=== PATIENT | female | born 1970 | race Caucasian/White ===

== ENCOUNTER 2018-08-15 09:37 | Emergency (ER) | payer OTHER, SELFPAY ==
[2018-08-15 09:38] VITALS: BP 138/85; PULSE 74; RESP 18; TEMP 36.6; O2SAT 98; BMI 38.0
--- NOTE | 2018-08-15 09:49 | EKG12_ITS ---
Test Reason : CHEST OTHER Blood Pressure : / mmHG Vent. Rate : 071 BPM Atrial Rate : 071 BPM P-R Int : 190 ms QRS Dur : 090 ms QT Int : 408 ms P-R-T Axes : 026 018 000 degrees QTc Int : 443 ms Normal sinus rhythm Normal ECG Confirmed by ÁNGEL MCNALLY, WALTER ([id number]), editor & co founder SORIN MACKEY ([id number]) on 08/19/2018 2:29:37 PM Referred By: MAGGI Confirmed By:WALTER NEAL MD
--- NOTE | 2018-08-15 09:49 | CT_ITS ---
STUDY: CTA CHEST REASON FOR EXAM: Female, 48 years old. Right-sided anterior chest pain with deep breathing. RADIATION DOSAGE (If Supplied By Facility): CTDIvol = ( 20.04 ) mGy, DLP = ( 711.89 ) mGycm TECHNIQUE: The examination was performed with the intravenous administration of 100mL ml of Isovue 370 contrast material. Post-processing of the angiographic images was performed, with multiplanar reformation and 3D reconstruction. Individualized dose optimization techniques were used for this CT. COMPARISON: None. FINDINGS: There are small bilateral benign-appearing axillary lymph nodes. There is evidence of an intraluminal thrombus in the right upper lobe pulmonary arterial branch as seen on axial image #150 and coronal image #142. Normal thoracic aorta and visualized great vessels. There is no demonstrated aortic dissection. Normal heart and pericardium. Normal mediastinum. Normal hilar regions. Normal visualized trachea and bronchi. The lungs are well expanded. Mild increase in linear markings at the lung bases suggestive of atelectasis. Normal pleura. Normal chest wall structures. Normal osseous structures. Normal visualized upper abdomen. CT/CTA Chest W/WO Contrast IMPRESSION: Focal pulmonary embolism in a branch of the right upper lobe pulmonary artery. Electronically Signed: Jose Zabala MD at 11:00 EST Tel [phone], Service support ,
--- NOTE | 2018-08-15 09:57 | ED.DCSUM_ITS ---
- ER Visit Summary Date of Service: 08/15/18 Chief Complaint: Right-sided chest pain History of Present Illness: The patient is a 48 F presents to the emergency department with gradual onset severe right-sided chest pain. Patient states her symptoms began last night. She states she had a pain underneath her left breast. She states throughout the night, the pain seemed to get worse. She feels like she cannot take a deep breath because of the pain. She denies any fevers or chills. She denies any cough. Patient has no history of pulmonary embolus. She denies any recent travel. She is currently on spinal lactone and doxycycline. She states that she will take antibiotics as needed for her histo ry of hidradenitis. She states that she has had some increasing pain in her right axilla. She denies history of smoking. She has no history of hypercoagulability. She has no history of coronary vascular disease. Physical Examination: Vital signs reviewed General: Well-nourished, well-developed Head: Normocephalic, atraumatic Eyes: Pupils equal and reactive, extraocular muscles intact Neck, supple, no lymphadenopathy Heart: Regular rate and rhythm Respiratory: No distress, clear bilaterally, tenderness over the right lower lateral chest underneath the breast. Abdomen: Soft, nontender, nondistended, no peritoneal signs Back: Nontender Extremities: Nontender, no edema, no cords Skin: Normal color no rash Neuro: Alert and oriented, no focal or lateralizing deficits Test Results: [] Emergency Department Course and Treatment: The patient presents with rather significant right-sided chest pain worse when she takes a deep breath. She is not tachycardic. She is not hypotensive. She is not hypoxic. IV was established. She was treated with Toradol with improvement of the pain. Her labs relatively unremarkable. Her EKG shows no evidence of right ventricular strain. Patient underwent CTA of the chest. She does have a right upper lobe pulmonary embolus. There is no evidence of lung infarct or pneumonia. I did discuss options with the patient. She wants to attempt outpatient therapy. I feel this is reasonable. She has no significant comorbidities, she is not hypoxic, and her pain is controlled. I did discuss the patient with Dr. Hawley, on-call for Dr. Carr. He agrees with plan for Xarelto use. Patient is given her first dose here. She was counseled on concerning symptoms and reasons to return. She will be discharged home. Treatment Plan: [] Disposition: To Impression: Right upper lobe pulmonary embolus This note was generated with [employer] dictation software. It may contain incorrect words, spelling, and punctuation that were not noted in review of the chart prior to signing ED Disposition - Plan for ED Patient: Disposition: Home or Assisted Living Chief Complaint: Chest Other Instructions: ED DVT, ED Chest Pain Pleurisy Prescriptions: Hydrocodone Bitart/Apap 5-325 [Circle 5MG-325MG] 1 tab PO Q6H PRN PRN 3 Days #10 tab PRN Reason: Pain Rivaroxaban [Xarelto] 15 mg PO BID #42 tab Referrals: Marcos Carr DO [Primary Care Provider] - 1 Day
[2018-08-15 10:07] LABS: Absolute Lymphocyte Count 1.53 X10^3/ul (0.83-4.51); Absolute Neutrophil Count 6.1 X10^3/uL (2.0-7.7); Basophil# 0.02 X10^3/uL; Basophil% 0.2 % (0-1); Eosinophil# 0.12 X10^3/uL; Eosinophils% 1.4 % (0-5); Hematocrit 40.3 % (37-47); Hemoglobin 13.3 g/dl (12.0-15.0); Lymphocyte # 1.53 X10^3/ul (4.0); Mean Corpuscular Hgb 29.6 pg (27.0-32.0); Mean Corpuscular Volume 89.8 fL (81-99); Mean Platelet Vol. 9.9 fl (6.2-12.0); Monocyte# 0.76 X10^3/uL; Monocyte% 8.9 % (0-10); Neutrophil # 6.08 X10^3/uL (2.7-7.7); Neutrophil % 71.4 % (47-70); POSITIVE COUNT NO; POSITIVE DIFFERENTIAL NO; POSITIVE MORPHOLOGY NO; Platelet Count 309 K/mm3 (150-450); RBC Distribution Width CV 12.7 % (11.6-14.6); RBC Distribution Width SD 41.4 fl (35.1-43.9); Red Blood Count 4.49 M/mm3 (4.2-5.4); White Blood Count 8.5 K/mm3 (4.4-11.0)
[2018-08-15] MEDS: Ondansetron 4 MG/2 ML Vial IV (10:07)
[2018-08-15] MEDS: 0.9% Normal Saline 1,000 ML 1000 ML IV (10:07)
[2018-08-15] MEDS: Ketorolac 15 MG/ML Vial IV (10:07)
[2018-08-15 10:14] LABS: Partial Thromboplast Time 28.1 Seconds (24.1-36.2)
[2018-08-15 10:28] LABS: ALB/GLOB Ratio 0.8 RATIO (0.9-2.4); AST(SGOT) 16 U/L (15-37); Alanine Aminotransfer ALT/SGPT 19 U/L (13-56); Albumin, Serum 3.8 g/dL (3.2-5.0); Alkaline Phosphatase 53 U/L (45-117); Anion Gap 6 (5-15); BUN 17 mg/dL (7-18); BUN/Creat Ratio 16.8 RATIO (10-20); Calcium,Total 8.9 mg/dL (8.5-10.1); Chloride 103 mmol/L (98-107); Creatinine, Serum 1.01 mg/dL (0.55-1.02); EST Glomerular Filtration Rate 62 mL/min (>60); Est Glom Filt Rate - Afr Amer 75 mL/min (>60); Globulin 4.6 g/dL (2.2-4.2); Glucose 85 mg/dL (74-106); Lipase 222 U/L (73-393); Potassium 4.3 mmol/L (3.5-5.1); Protein, Total 8.4 g/dL (6.4-8.2); Sodium Level 138 mmol/L (136-145)
[2018-08-15 12:52] VITALS: BP 112/72; PULSE 66; PULSE 70; RESP 18
[2018-08-15] MEDS: Rivaroxaban 15 MG Tablet PO (12:54)
== END 2018-08-15 13:11 | disposition home or self-care (01) ==
LOC: ED 10:06
PROVIDERS: Emergency Provider Emergency Medicine; Family Provider Student in an Organized Health Care Education/Training Program; PCP Student in an Organized Health Care Education/Training Program
DX: I26.99 Other pulmonary embolism without acute cor pulmonale (principal)
CPT/HCPCS: 71275; 80053; 83690; 84484; 85025; 85610; 85730; 93005; 96361; 96374; 96375; 99285; J7030; Q9967; A4216; J2405

== ENCOUNTER 2018-12-26 11:03 | Day surgery (SDC) | payer OTHER, SELFPAY ==
[2018-12-05 13:20] VITALS: BMI 38.0
--- NOTE | 2018-12-05 13:20 | HP_ITS ---
Intake Vital Signs 12/05/18 Body Mass Index (BMI) 38.0 12/05/18 Height 5 ft 6.5 in 12/05/18 Weight: 245 lb 1 oz 12/05/18 Body Mass Index (BMI) 38.9 12/05/18 Blood Pressure 126/81 H 12/05/18 Blood Pressure Location Rt brachial 12/05/18 Blood Pressure Position Sitting 12/05/18 Respiratory Rate 18 12/05/18 Pulse Rate 75 12/05/18 Pulse Ox 98 Intake Visit Reasons: EGD & COLONOSCOPY Allergies Penicillins Allergy (Verified 12/05/18 13:15) Rash erythromycin base Adverse Reaction (Verified 12/05/18 13:15) Diarrhea Medications Desloratadine [Clarinex] 5 mg PO PRN PRN 08/15/18 [History Confirmed 12/05/18] Doxycycline 100 mg PO DAILY 08/15/18 [History Confirmed 12/05/18] Losartan Potassium [Cozaar] 25 mg PO DAILY 08/15/18 [History Confirmed 12/05/18] Rivaroxaban [Xarelto] 15 mg PO BID #42 tab 08/15/18 [Rx Confirmed 12/05/18] Spironolactone [Aldactone] 100 mg PO BID 08/15/18 [History Confirmed 12/05/18] traMADol [Ultram (G)] 50 mg PO PRN PRN 08/15/18 [History Confirmed 12/05/18] PFSH Medical History Back pain (Acute) Hidradenitis (Acute) Osteoarthritis (Acute) Pulmonary embolism (Acute) HTN (hypertension) (Chronic) Surgical History History of colonoscopy (Acute ~2008) History of colonoscopy (Acute ~2013) History of dilation and curettage (Acute) History of esophagogastroduodenoscopy (EGD) (Acute ~2001) Family History Father Colon cancer CVA (cerebral vascular accident) Heart disease Uncle Cancer stomach Social History Smoking Status: Never smoker ROS General General: No weight change, appetite, fatigue, colon cancer, breast cancer or weakness HEENT HEENT: No difficulty swallowing, eye injury, eye surgery, swollen glands or hoarseness Musc Musculoskeletal: Yes back problems and arthritis; no rheumatoid arthritis, gout or joint pain Cardio Cardiovascular: Yes high blood pressure; no murmur, pacemaker, heart disease, atrial fibrillation, heart attack, heart stent, palpitations, shortness of breat with exertion or chest pain Resp Respiratory: No shortness of breath, No sleep apnea, No cough, No COPD, No asthma, No emphysema, No wheezing Gastro Gastrointestinal: No abdominal pain, No nausea or vomiting, Yes diarrhea, No constipation, No blood in stool, No acid reflux, No hemorrhoids, No ulcers, No gallbladder problem, No black,tarry stools Neuro Neurologic: No weakness Exam Const General: no acute distress, well developed, well hydrated Orientation: oriented to person, oriented to place, oriented to time [facility] Head: normocephalic, atraumatic Ears: external ears normal Mouth: moist mucous membranes Eyes Sclera: sclerae normal Pupils: normal by confrontation Neck Neck: no lymphadenopathy noted Neck mass: No Thyroid: thyroid normal, symmetrical Chest Chest palpation & inspection: normal inspection of the chest Resp Effort & Inspection: normal respiratory effort Auscultation: clear to auscultation bilaterally Percussion: percussion normal Cardio Rate: regular rate Rhythm: regular rhythm Heart Sounds: no murmurs GI Inspection: obesity Palpation: soft, no hepatosplenomegaly, no masses, nontender Rectal Exam: other Other: Rectal exam deferred. Extrem General: normal to inspection, no clubbing, cyanosis or edema Assessment & Plan Problems 1. Acute pulmonary embolism without acute cor pulmonale, unspecified pulmonary embolism type I26.99 2. Epigastric abdominal pain R10.13 3. Family history of stomach cancer Z80.0 4. Family history of colon cancer Z80.0 Plan I have discussed the above with the patient. I have offered the patient colonoscopy as well as EGD for evaluation. I have explained the risks/benefits of the procedure and described the procedure. I have discussed the risks with the patient, including but not limited to: infection, bleeding, perforation of the GI tract requiring emergency surgery, inability to complete the procedure, injury to any internal organs, complications of anesthesia, etc. - the patient understands and agrees to proceed. I have answered all the patient's questions to the patient's satisfaction and the patient has no further questions. The patient has been given instructions for the colon cleansing preparation. Coding Level of Care Code Off vis,new,level 3 Diagnoses Acute pulmonary embolism without acute cor pulmonale, unspecified pulmonary embolism type I26.99 ??Pulmonary embolism type: unspecified Epigastric abdominal pain R10.13 Family history of stomach cancer Z80.0 Family history of colon cancer Z80.0
[2018-12-26] VITALS (7 sets, daily range): BP systolic 121–131; BP diastolic 82–88; PULSE 79–98; RESP 16–18; TEMP 36.8–37; O2SAT 97–100; BMI 37.2
--- NOTE | 2018-12-26 | GASB_PTH ---
PATIENT: NOBLE SON LOC: EN U#:[id number] AGE/SX: 48/F ROOM: RE12/26/[address]: Dr. Rory Abbott MD : 1970 BED: DIS: 12/26/2018 SPEC #: [id number] RECD: 12/26/18 14:32 STATUS: DERRICK OBED #: [id number] ANTOINETTE: 12/26/18 00:[address]: Rory Abbott DEPT: SURGICAL PATHOLOGY RECD BY: Jorje Roque ENTERED: 12/26/18 14:33 SP TYPE: Gastric Bx OTHR DR: Dr. Marcos Carr DO Tissues: Stomach, NOS Procedures: Surgery Specimen Level IV HEADER OPERATION: Colonoscopy, EGD ([facility] [place]) PRE-OP DIAGNOSIS: Epigastric pain; family history of colon cancer TISSUE SUBMITTED: Antral biopsy MICROSCOPIC DIAGNOSIS Antral biopsy: Focal mild gastritis. See microscopic description and comment. SJ:jennifer 12/27/18 COMMENT The results of immunohistochemistry for Helicobacter pylori will be reported separately ([id number]). MICROSCOPIC DESCRIPTION Slides are reviewed. The specimen shows fragments of gastric mucosa with chronic inflammatory cell infiltrates in the lamina propria consisting of lymphocytes and plasma cells, consistent with mild chronic gastritis. GROSS DESCRIPTION Received in fixative is one container labeled with the patient's name and designated antral biopsy. The specimen consists of multiple irregular fragments of light carter soft tissue that in aggregate measure 0.8 x 0.2 x 0.1 cm. The specimen is totally submitted in one cassette. / SJ:rg 12/26/18 TC:3 CPT: 83191
--- NOTE | 2018-12-26 | IMM_PTH ---
PATIENT: NOBLE SON LOC: EN U#:[id number] AGE/SX: 48/F ROOM: RE12/26/[address]: Dr. Rory Abbott MD : 1970 BED: DIS: 12/26/2018 SPEC #: [id number] RECD: 12/27/18 11:45 STATUS: DERRICK REQ #: [id number] ANTOINETTE: 12/26/18 00:[address]: Rory Abbott DEPT: IMMUNOHISTOCHEMISTRY RECD BY: Mell Hill ENTERED: 12/27/18 11:45 SP TYPE: IMMUNO OTHR DR: Dr. Marcos Carr DO Tissues: Stomach, NOS Procedures: H Pylori (initial) PHYSICIAN & INSTITUTION [place] [id number] SPECIMEN INFORMATION: Tissue Source: Antral biopsy Clinical Info: Epigastric pain, family history colon cancer Specimen Number: [id number] CPT code: 29913 METHODOLOGY: Deparaffinized sections of prefer/formalin-fixed tissue or PAP/DQ stained slides are incubated with monoclonal/polyclonal antibodies/oligonucleotide probes. Localization is made via biotin free immunoperoxidase method. Appropriate controls are performed and reacted as expected. Results on target cell population are indicated in the following table: RESULTS: ANTIBODY / CLONE RESULT H Pylori (polyclonal) negative These tests were developed and their performance characteristics determined by [facility]. They may not have been cleared or approved by the U.S. Food and Drug Administration. The FDA has determined that such clearance or approval is not necessary. INTERPRETATION: Antral biopsy: Negative for Helicobacter pylori organisms. DORENE:jennifer 12/30/18
--- NOTE | 2018-12-26 12:28 | OP.ENDO_ITS ---
12/26/2018 Marcos Carr [address] [place] [address] Re : Upper GI endoscopy procedure for Che Babin Dear Dr. Carr This procedure was performed on December. My impressions and recommendations are as follows: Impressions : - Z-line regular, 40 cm from the incisors. No specimens collected. - Normal esophagus. - Erythematous mucosa in the prepyloric region of the stomach. Biopsied. - Normal examined duodenum. No specimens collected. Recommendations : - Discharge patient to home. - Resume previous diet. - Continue present medications. - Await pathology results. - Repeat upper endoscopy in 5 years for surveillance. - Return to my office in 1 week. My findings are described in the full procedure note, which is enclosed. If I can be of further assistance, please feel free to contact me at Doctor phone number(s): , Fax: [phone], Work: . Sincerely, MD Rory Hardy MD 12/26/2018 12:28:08 PM This report has been signed electronically.
--- NOTE | 2018-12-26 12:31 | OP.ENDO_ITS ---
12/26/2018 Marcos Carr [address] [place] [id number] Re : Colonoscopy procedure for Che Babin Dear Dr. Carr This procedure was performed on December. My impressions and recommendations are as follows: Impressions : - Diverticulosis in the sigmoid colon. No specimens collected. - Non-bleeding internal hemorrhoids. - The examination was otherwise normal. Recommendations : - Discharge patient to home. - Resume previous diet. - Continue present medications. - Repeat colonoscopy in 5 years for surveillance. - Return to my office in 1 week. My findings are described in the full procedure note, which is enclosed. If I can be of further assistance, please feel free to contact me at Doctor phone number(s): , Fax: [phone], Work: . Sincerely, MD Rory Hardy MD 12/26/2018 12:30:52 PM This report has been signed electronically.
== END 2018-12-26 13:30 | disposition home or self-care (01) ==
LOC: EN 11:04 → AC 11:05
PROVIDERS: Family Provider Student in an Organized Health Care Education/Training Program; PCP Student in an Organized Health Care Education/Training Program; Referring Provider Student in an Organized Health Care Education/Training Program; Visit Provider Surgery
PROC: 0DJD8ZZ Inspection of Lower Intestinal Tract, Via Natural or Artificial Opening Endoscopic (ICD-10-PCS; CPT 45378; principal; 2018-12-26 11:55)
DX: K29.50 Unspecified chronic gastritis without bleeding (principal); K64.8 Other hemorrhoids; K57.30 Diverticulosis of large intestine without perforation or abscess without bleeding; K31.89 Other diseases of stomach and duodenum; R10.13 Epigastric pain; I10 Essential (primary) hypertension; I26.99 Other pulmonary embolism without acute cor pulmonale; Z80.0 Family history of malignant neoplasm of digestive organs
CPT/HCPCS: 43239; 45378; 88305; 88342; J7120; J1610

== ENCOUNTER 2019-04-05 20:07 | Emergency (ER) | payer OTHER, SELFPAY ==
[2018-12-26 11:22] VITALS: BMI 37.2
[2019-04-05 20:08] VITALS: BP 123/86; PULSE 80; RESP 15; TEMP 36.6; O2SAT 97; BMI 37.5
--- NOTE | 2019-04-05 20:44 | CT_ITS ---
HISTORY: LEFT UPPER RIB PAIN, INCREASED WITH DEEP INSPIRATION, HX PE , STOPPED XARELTO AFTER 6 MONTH THERAPY, HX HTN TECHNIQUE: Helically acquired images were obtained of the chest following the intravenous administration of 100ML ml of Isovue 370 Iodinated contrast. as per pulmonary angiogram protocol with 2D MIP reconstructions. A radiation dose optimization technique was used for this scan. COMPARISON: None FINDINGS: # of images incl. paperwork: [id number] Lungs are clear scarring within the azygoesophageal recess related to large enthesophytes on the right side of the thoracic spine with minimal basilar atelectasis. No effusions. Within the thoracic spinebony alignment is normal. Vertebral body height is normal. Facets are well aligned. No rib lesions are perceived. Heart is not enlarged. Thoracic aorta is normal. No aneurysms, stenoses, dissections, nor occlusions. No axillary or mediastinal adenopathy. No pulmonary emboli. Visualized portions of the upper abdomen are without identified acute pathology. CT/CTA Chest W/WO Contrast IMPRESSION: No pulmonary embolism, aortic aneurysm, or aortic dissection. Individualized dose optimization techniques were used for this CT. at 2241 Reported and signed by: Kp Field MD Electronically Signed: Kp Field MD at 22:40 EDT Tel , Service support ,
[2019-04-05] MEDS: 0.9% Normal Saline 1,000 ML 1000 ML IV (21:06)
[2019-04-05 21:26] LABS: Absolute Lymphocyte Count 2.33 X10^3/uL (0.83-4.51); Absolute Neutrophil Count 5.2 X10^3/uL (2.0-7.7); Basophil# 0.05 X10^3/uL; Basophil% 0.6 % (0-1); Eosinophil# 0.17 X10^3/uL; Hemoglobin 13.1 g/dL (12.0-15.0); Lymphocyte # 2.33 X10^3/ul (4.0); Lymphocyte % 27.4 % (19-41); Mean Corp Hgb Conc 32.8 g/dL (32-36); Mean Corpuscular Hgb 30.1 pg (27.0-32.0); Mean Platelet Vol. 10.5 fl (6.2-12.0); Monocyte# 0.73 X10^3/uL; Monocyte% 8.6 % (0-10); NRBC Flagged by Analyzer 0 % (0-5); Neutrophil # 5.19 X10^3/uL (2.7-7.7); Neutrophil % 61.2 % (47-70); Platelet Count 290 K/mm3 (150-450); RBC Distribution Width CV 12.2 % (11.6-14.6); RBC Distribution Width SD 41.6 fl (35.1-43.9); Red Blood Count 4.35 M/mm3 (4.2-5.4); White Blood Count 8.5 K/mm3 (4.4-11.0)
[2019-04-05 21:39] LABS: Anion Gap 6 (5-15); BUN 24 mg/dL (7-18); BUN/Creat Ratio 20.2 RATIO (10-20); Calcium,Total 8.8 mg/dL (8.5-10.1); Chloride 103 mmol/L (98-107); Creatinine, Serum 1.19 mg/dL (0.55-1.02); EST Glomerular Filtration Rate 51 mL/min (>60); Est Glom Filt Rate - Afr Amer 62 mL/min (>60); Glucose 89 mg/dL (74-106); Potassium 4.1 mmol/L (3.5-5.1); Sodium Level 137 mmol/L (136-145)
[2019-04-05 22:40] VITALS: BP 108/64; PULSE 69; RESP 16; O2SAT 97
--- NOTE | 2019-04-05 23:13 | ED.DCSUM_ITS ---
- ER Visit Summary Date of Service: 04/05/19 Chief Complaint: Chest pain History of Present Illness: The patient is a [address] Carr and Dr. Britton. She reports that she has a history of a PE that was unprovoked in August 2018. She has chest and back pain that began at 1:00 today and is similar to the pain she had then. She was taken off Xarelto on February 24. She describes it as sharp pain is 4 to 10 hours and 2-10 currently. Is worsened by deep breaths and relieved by rest. She denies any ankle swelling or calf pain. No fever, chills, cough, or other complaints. She does not feel short of breath. Physical Examination: Vitals: Stable. Afebrile. General: Well-nourished and well-developed. Head: Normocephalic atraumatic. Neck: Supple, no lymphadenopathy. No JVD. Nontender. Cardiovascular: Regular rate and rhythm. No murmurs. Respiratory: No respiratory distress. Clear to auscultation bilaterally. Abdominal: Soft, nontender, nondistended, normal bowel sounds. No guarding, rebound, or peritoneal signs. Back: Nontender. Extremities: Nontender, no edema. Skin: Normal color, no rash. Neurologic: Alert and oriented ?3. Cranial nerves II through XII are intact. Normal strength and sensation. Psych: Normal affect. Test Results: CBC is unremarkable. Chem-7 shows a BUN of 24 and creatinine 1.19. Clinical Impression(s) from Imaging Studies Chest CTA 04/05/19 20:44 IMPRESSION: No pulmonary embolism, aortic aneurysm, or aortic dissection. Individualized dose optimization techniques were used for this CT. at 2241 Reported and signed by: Kp Field MD Electronically Signed: Kp Field MD at 22:40 EDT Tel , Service support , Emergency Department Course and Treatment: Patient refused pain and nausea medications. She is resting comfortably. She was reassured. Treatment Plan: Patient will be discharged instructions follow-up with primary care physician in 3 to 5 days if not improving. Return to the emergency department for any worsening symptoms. Disposition: To home in improved and stable condition. Impression: 1. Chest pain, uncertain cause. This note was generated with [employer] dictation software. It may contain incorrect words, spelling, and punctuation that were not noted in review of the chart prior to signing ED Disposition - Plan for ED Patient: Disposition: Home or Assisted Living Instructions: BACK PAIN (Acute or Chronic) Referrals: Marcos Carr, [Primary Care Provider] - 3-5 Days if not improving
[2019-04-05 23:33] VITALS: BP 102/70; PULSE 77; RESP 16; O2SAT 94
== END 2019-04-05 23:40 | disposition home or self-care (01) ==
LOC: ED 20:58
PROVIDERS: Emergency Provider Emergency Medicine; Family Provider Student in an Organized Health Care Education/Training Program; PCP Student in an Organized Health Care Education/Training Program
DX: R07.9 Chest pain, unspecified (principal); I10 Essential (primary) hypertension; Z86.711 Personal history of pulmonary embolism; M54.9 Dorsalgia, unspecified
CPT/HCPCS: 71275; 80048; 85025; 96360; 99284; J7030; Q9967; A4216

== ENCOUNTER 2020-01-25 21:22 | Observation (INO) | payer OTHER, SELFPAY ==
[2020-01-25 21:22] VITALS: BP 123/93; PULSE 94; RESP 16; TEMP 37.7; O2SAT 98; BMI 40.3
--- NOTE | 2020-01-25 22:00 | CT_ITS ---
STUDY: CT ABDOMEN AND PELVIS WITHOUT CONTRAST REASON FOR EXAM: Female, 49 years old. RLQ PAIN/CHILLS. Prior tubal ligation. Hx of HTN and osteoarthritis RADIATION DOSAGE (If Supplied By Facility): CTDIvol = ( 22.42 ) mGy, DLP = ( 1153.71 ) mGycm TECHNIQUE: Transaxial images were obtained from the dome of the diaphragm to the symphysis pubis without oral contrast, and without intravenous contrast. Sagittal and coronal images were reconstructed. Individualized dose optimization techniques were used for this CT. COMPARISON: Chest CT dated April 05, 2019 FINDINGS: There is a stable subpleural 3.5 mm nodule within the right lower lobe. The visualized portions of the heart are within normal limits. The lack of intravenous contrast limits evaluation of solid visceral organs. Normal liver. Normal gallbladder and extrahepatic biliary system. Normal spleen. Normal pancreas. Normal bilateral adrenal glands. Normal right kidney. Normal left kidney. Normal visualized stomach. Normal small intestine. There are scattered diverticula arising from the colon. There is a tubular, thick-walled appendix (>7mm), consistent with acute appendicitis. There is an appendicolith within the appendix. Normal abdominal aorta. Normal inferior vena cava. Normal retroperitoneum. Normal urinary bladder. There is evidence of prior tubal ligation. There is a small umbilical hernia containing fat. There are degenerative changes of the visualized thoracic and lumbar spine. There is a grade 1 anterior spondylolisthesis of L4 on L5. CT/Abdomen/Pelvis without Cont IMPRESSION: Acute appendicitis. Colonic diverticulosis. Electronically Signed: Mayra Sarabia MD at 22:41 EDT Tel , Service support ,
--- NOTE | 2020-01-25 22:01 | ED.DCSUM_ITS ---
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 She states it initially was across her lower abdomen, then a moved to the right lower quadrant where it basically stayed, sometimes radiating into the right side. Anorexic. No nausea or vomiting. Normal bowel movements but has not had one today. Normal urination. Prior similar symptoms: No Recent Illness/Hospitalization: No - Past Medical History (1) Pulmonary embolus Status: Chronic (2) Hidradenitis suppurativa Status: Chronic (3) Hypertension Status: Chronic (4) Osteoarthritis of right knee Status: Chronic Past Medical History - Allergies and Home Meds Allergies/Adverse Reactions: Allergies Penicillins Allergy (Verified 01/25/20 21:22) Rash erythromycin base Adverse Reaction (Verified 01/25/20 21:22) Diarrhea Primary Care Physician: Marcos Carr DO [Primary Care Provider] - Lives: With Family Smoking Status: Never smoker Review of Systems General: Reports: Chills, Malaise. Denies: Fever, Sweats Eyes: Denies: Visual changes - bilaterally, Diplopia ENT: Denies: Bilateral ear pain, Rhinorrhea, Sore throat Cardiovascular: Denies: Chest pain, Palpitations Respiratory: Denies: Dyspnea, Cough, Dyspnea on exertion Gastrointestinal: Reports: Abdominal pain. Denies: Nausea, Vomiting, Diarrhea, Melena, Hematochezia Genitourinary: Denies: Dysuria, Hematuria, Frequency Musculoskeletal: Denies: Neck pain, Back pain, Swelling, Extremity Pain Skin: Denies: Rash, Wounds Neurological: Denies: Headache, Weakness, Numbness Physical Exam Vital Signs/Narrative: Vital Signs Temp Pulse Resp BP Pulse Ox 01/25/20 21:22 99.8 F H 94 16 123/93 H 98 Inital Vital Signs reviewed: Yes General: Well nourished, Well developed, Acute Distress - mild, pain Head: Normocephalic, Atraumatic Eyes: Perrl, EOMI ENT: Moist mucous membranes, No rhinorrhea Neck: Supple, Nontender Cardiovascular: Regular rate, Regular rhythm, No murmurs Respiratory: No distress, CTA bilaterally, Chest nontender Abdomen: Soft, Nondistended, Normal bowel sounds, Tender - RLQ around McBurney's pt, and into lateral flank/side, Guarding, Rebound tenderness, - - Palpation in RUQ causes increased pain in RLQ. Negative for: No masses, Pulsatile mass, Inguinal hernia, Psoas sign, Obturator sign, Rovsig's sign, Torres's sign Back: Nontender, Normal Inspection. Negative for: CVA tenderness Extremities: Nontender, No edema. Negative for: Calf Tenderness Skin: Normal color, No rash, No Trauma Neurological: Alert, Oriented x3, Cranial nerves II-XII grossly intact, Normal Strength, Normal Sensation, Normal Gait Psychological: Normal Mood, Tearful Diagnostic/Tx/Re-eval Impressions Abdomen/Pelvis CT 01/25/20 22:00 IMPRESSION: Acute appendicitis. Colonic diverticulosis. Electronically Signed: Mayra Sarabia MD at 22:41 EDT Tel , Service support , 01/25/20 22:00 Abdomen/Pelvis without Cont [CT] Stat Laboratory Results 01/25/20 01/25/20 01/25/20 21:40 22:00 22:00 WBC 13.1 H RBC 4.20 Hgb 12.6 Hct 38.4 MCV 91.4 MCH 30.0 MCHC 32.8 RDW Std Deviation 39.8 RDW Coeff of Chava 12.0 Plt Count 278 MPV 10.5 Immature Gran % (Auto) 0.300 Neut % (Auto) 75.4 H Lymph % (Auto) 15.0 L [place] % (Auto) 8.2 Eos % (Auto) 0.7 Baso % (Auto) 0.4 Absolute Neuts (auto) 9.9 H Absolute Lymphs (auto) 1.96 Nucleated RBC % 0 Sodium 138 Potassium 3.9 Chloride 103 Carbon Dioxide 28.0 Anion Gap 7 BUN 17 Creatinine 1.18 H Estim Creat Clear Calc 54.85 Est GFR (MDRD) Af Amer 62 Est GFR (MDRD) Non-Af 51 L BUN/Creatinine Ratio 14.4 Glucose 92 Calcium 9.0 Total Bilirubin 0.40 AST 17 ALT 23 Alkaline Phosphatase 51 Total Protein 7.8 Albumin 3.6 Globulin 4.2 Albumin/Globulin Ratio 0.9 Lipase 128 Urine Color Yellow Urine Clarity Clear Urine pH 5.0 Ur Specific [place] 1.020 Urine Protein Negative Urine Glucose (UA) Normal Urine Ketones 5 H Urine Occult Blood Negative Urine Nitrite Negative Urine Bilirubin Negative Urine Urobilinogen Normal Ur Leukocyte Esterase 100 H Urine RBC 0-5 SEEN Urine WBC 0-5 SEEN Ur Squamous Epith Cells 5-10 SEEN Urine Bacteria 1+ Urine Mucus 1+ - Medical Decision Making As above, CT shows acute appendicitis with an appendicolith. This is consistent with where she is tender on her exam. She was given analgesics, IV fluids, Zofran, she is improved on reevaluation. She has a remote allergy to penicillin, she is not sure what it is, so we avoided it, starting Cipro and Flagyl after discussing with Dr. phelan with surgery. She will be admitted, her last dose of Xarelto was about 24 hours ago, so that surgery will be delayed until the morning, to allow a little more time without the anticoagulant. ED Disposition - Plan for ED Patient: Disposition: Acute Care Hospital [facility] Diagnosis: Acute appendicitis Referrals: Marcos Carr DO [Primary Care Provider] -
[2020-01-25] MEDS: 0.9% Normal Saline 1,000 ML 125 ML IV (22:11)
[2020-01-25] MEDS: Ondansetron 4 MG/2 ML Vial IV (22:11)
[2020-01-25] MEDS: Ketorolac 30 MG/ML Syringe IV (22:12)
[2020-01-25] MEDS: Morphine 4 MG/ML Syringe IV (22:14)
[2020-01-25 22:16] LABS: Color, Urine Yellow (Yellow); Glucose, Dipstick Normal (Normal); Ketone-Dipstick 5 mg/dl (Negative); Leukocyte Esterase-Dipstick 100 /ul (Negative); Nitrite-Dipstick Negative (Negative); Occult Blood-Urine Negative /ul (Negative); Protein-Dipstick Negative (Negative); Urine Bilirubin Dipstick Negative (Negative); Urine Clarity Clear (Clear); Urine Urobilinogen Normal (Normal)
[2020-01-25 22:27] VITALS: BP 117/76; PULSE 94; RESP 16; TEMP 37.3; O2SAT 94
[2020-01-25 22:27] LABS: Absolute Lymphocyte Count 1.96 X10^3/uL (0.83-4.51); Absolute Neutrophil Count 9.9 X10^3/uL (2.0-7.7); Basophil# 0.05 X10^3/uL; Basophil% 0.4 % (0-1); Eosinophil# 0.09 X10^3/uL; Eosinophils% 0.7 % (0-5); Hematocrit 38.4 % (37-47); Hemoglobin 12.6 g/dL (12.0-15.0); Lymphocyte # 1.96 X10^3/ul (4.0); Mean Corp Hgb Conc 32.8 g/dL (32-36); Mean Corpuscular Volume 91.4 fL (81-99); Mean Platelet Vol. 10.5 fl (6.2-12.0); Monocyte# 1.07 X10^3/uL; Monocyte% 8.2 % (0-10); NRBC Flagged by Analyzer 0 % (0-5); Neutrophil % 75.4 % (47-70); Platelet Count 278 K/mm3 (150-450); RBC Distribution Width SD 39.8 fl (35.1-43.9); White Blood Count 13.1 K/mm3 (4.4-11.0)
[2020-01-25 22:27] LABS: Bacteria 1+ /hpf (None Seen); Mucous, Urine 1+ /hpf (<or=2+); Red Blood Cells-Urine 0-5 SEEN /hpf (0-5); Squamous Epithelial Cells - UA 5-10 SEEN /hpf (5-10); White Blood Cells 0-5 SEEN /hpf (0-5)
[2020-01-25 22:31] LABS: ALB/GLOB Ratio 0.9 RATIO (0.9-2.4); AST(SGOT) 17 U/L (15-37); Alanine Aminotransfer ALT/SGPT 23 U/L (13-56); Albumin, Serum 3.6 g/dL (3.2-5.0); Alkaline Phosphatase 51 U/L (45-117); Anion Gap 7 (5-15); BUN 17 mg/dL (7-18); BUN/Creat Ratio 14.4 RATIO (10-20); Chloride 103 mmol/L (98-107); Creatinine, Serum 1.18 mg/dL (0.55-1.02); EST Glomerular Filtration Rate 51 mL/min (>60); Est Glom Filt Rate - Afr Amer 62 mL/min (>60); Estimated Creatinine Clearance 54.85 ml/min; Globulin 4.2 g/dL (2.2-4.2); Glucose 92 mg/dL (74-106); Lipase 128 U/L (73-393); Potassium 3.9 mmol/L (3.5-5.1); Protein, Total 7.8 g/dL (6.4-8.2); Sodium Level 138 mmol/L (136-145)
[2020-01-25 23:30] VITALS: BP 123/75; PULSE 89; RESP 15; TEMP 37.2; O2SAT 94
[2020-01-25] MEDS: metroNIDAZOLE 500 MG/100 ML BAG 100 MG IV (23:37)
[2020-01-26] VITALS (12 sets, daily range): BP systolic 94–128; BP diastolic 48–79; PULSE 80–101; RESP 14–18; TEMP 36.7–37.4; O2SAT 6–98; BMI 40.1
[2020-01-26] MEDS: Ciprofloxacin 400 MG/200 ML BAG 200 MG IV ×2 (01:26→12:09)
[2020-01-26] MEDS: Morphine 4 MG/ML Syringe IV ×2 (01:33→04:04)
[2020-01-26] MEDS: 0.9% Saline Lock 10 ML Syringe IV (04:05)
--- NOTE | 2020-01-26 05:00 | EKG12_ITS ---
Test Reason : PRE-OP Blood Pressure : / mmHG Vent. Rate : 074 BPM Atrial Rate : 074 BPM P-R Int : 196 ms QRS Dur : 084 ms QT Int : 402 ms P-R-T Axes : 036 026 003 degrees QTc Int : 446 ms Normal sinus rhythm Normal ECG When compared with ECG of 15-AUG-2018 10:08, No significant change was found Confirmed by ÁNGEL MCNALLY, WALTER ([id number]), city editor SORIN MACKEY ([id number]) on 01/27/2020 3:47:46 PM Referred By: Kasey Matthews Confirmed By:WALTER NEAL MD
[2020-01-26 06:05] LABS: Absolute Lymphocyte Count 1.55 X10^3/uL (0.83-4.51); Basophil# 0.04 X10^3/uL; Basophil% 0.4 % (0-1); Eosinophil# 0.06 X10^3/uL; Eosinophils% 0.6 % (0-5); Hematocrit 35.9 % (37-47); Hemoglobin 11.6 g/dL (12.0-15.0); Lymphocyte # 1.55 X10^3/ul (4.0); Mean Corp Hgb Conc 32.3 g/dL (32-36); Mean Corpuscular Hgb 30.4 pg (27.0-32.0); Mean Platelet Vol. 10.4 fl (6.2-12.0); Monocyte# 1.02 X10^3/uL; Monocyte% 10.5 % (0-10); NRBC Flagged by Analyzer 0 % (0-5); Neutrophil # 7.01 X10^3/uL (2.7-7.7); Neutrophil % 72.2 % (47-70); Platelet Count 249 K/mm3 (150-450); RBC Distribution Width CV 11.8 % (11.6-14.6); Red Blood Count 3.82 M/mm3 (4.2-5.4); White Blood Count 9.7 K/mm3 (4.4-11.0)
[2020-01-26] MEDS: metroNIDAZOLE 500 MG/100 ML BAG 100 MG IV (06:10)
[2020-01-26 06:23] LABS: Anion Gap 6 (5-15); BUN 17 mg/dL (7-18); BUN/Creat Ratio 14.7 RATIO (10-20); Calcium,Total 8.3 mg/dL (8.5-10.1); Chloride 106 mmol/L (98-107); Creatinine, Serum 1.16 mg/dL (0.55-1.02); EST Glomerular Filtration Rate 52 mL/min (>60); Est Glom Filt Rate - Afr Amer 63 mL/min (>60); Estimated Creatinine Clearance 53.71 ml/min; Glucose 91 mg/dL (74-106); Potassium 3.9 mmol/L (3.5-5.1); Sodium Level 138 mmol/L (136-145)
--- NOTE | 2020-01-26 06:27 | PCM.HP.STD ---
History of Present Illness Date of Admission: 01/25/20 The patient is a 49 year old F presented to the hospital due to a new right lower quadrant pain starting about 2 PM. Patient states her abdominal pain initially began around noon. Patient did have nausea and vomiting associated with this. 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 She is followed by Dr. Britton. CT abdomen pelvis did show acute appendicitis with appendicolith, white blood cell count was 13. Patient was started on Cipro Flagyl IV in the ER. Past Medical History Past Medical History (Chronic Problems): Chronic Problems (Last Reviewed 12/05/18 @ 13:[address] Rory Abbott MD) Pulmonary embolus (Chronic) Hidradenitis suppurativa (Chronic) Hypertension (Chronic) Osteoarthritis of right knee (Chronic) Medical History: Medical History (Last Reviewed 12/05/18 @ 13:[address] Rory Abbott MD) Back pain M54.9 Hidradenitis L73.2 Osteoarthritis M19.90 Pulmonary embolism I26.99 HTN (hypertension) I10 Allergies Penicillins Allergy (Verified 01/25/20 21:22) Rash erythromycin base Adverse Reaction (Verified 01/25/20 21:22) Diarrhea Home Medications: Ambulatory Orders Medication Instructions Recorded Doxycycline 100 mg PO QHS 08/15/18 Losartan Potassium [Cozaar] 25 mg PO QHS 08/15/18 Spironolactone [Aldactone] 100 mg PO BID 08/15/18 traMADol [Ultram (G)] 50 mg PO BID PRN 08/15/18 Rivaroxaban [Xarelto] 20 mg PO QHS 12/25/18 Surgical History: Surgical History (Last Reviewed 12/05/18 @ 13:[address] Rory Abbott MD) History of colonoscopy Onset Date: ~2008 Z History of colonoscopy Onset Date: ~2013 Z History of dilation and curettage History of esophagogastroduodenoscopy (EGD) Onset Date: ~2001 Z98. Surgical History: rotator cuff repair, tonsillectomy, - - tubal Psychiatric History: No pertinent psych hx NEONATOLOGIST History: No pertinent NEONATOLOGIST history Lives: With Family Smoking Status: Never smoker - *Family History Maternal Family History: Family History (Last Reviewed 12/05/18 @ 13:[address] Rory Abbott MD) Father Colon cancer CVA (cerebral vascular accident) Heart disease Uncle Cancer History Items: No pertinent history Review of Systems Constitutional: Reports: Anorexia Eyes: Denies: Blurred vision HEENT: Denies: Difficulty Swallowing VTE Information - Inpt Only VTE Present on Admission: Yes VTE Mechan Device Prophylaxis: SCD's VTE Pharm Prophylaxis ordered?: No Reason prophylaxis not ordered:: Treatment Not Indicated Patient Problems: Active and Suspected Problems (Last Reviewed 12/05/18 @ 13:[address] Rory Abbott MD) Acute appendicitis (Acute) - Physical Exam Vitals/I&O's: Vital Signs Temp Pulse Resp BP Pulse Ox 98.2 F 86 14 97/58 L 95 01/26/20 06:00 01/26/20 06:00 01/26/20 06:00 01/26/20 06:00 01/26/20 06:00 Oxygen Delivery Method Room Air Weight: 255 lb 8.252 oz Body Mass Index (BMI) 40.1 Intake and Output for Last 24 Hours 01/24/20 01/25/20 01/26/20 23:59 23:59 23:59 Intake Total 1297.92 / 1297.92 Balance 1297.92 / 1297.92 General: Alert, Oriented x3, Cooperative, No apparent distress HEENT: Atraumatic Lungs: Normal air movement Cardiovascular: Regular rate Abdomen: Soft, Distended, Tender - Right lower quadrant, and no peritoneal signs Extremities: No clubbing, No cyanosis, No edema Lymphatic: No Cervical, Supraclavicular, or Inguinal Adenopathy Neurological: Cranial nerves II-XII grossly intact Psych/Mental Status: Normal Affect Microbiology Past 72 Hours 01/25/20 23:14 Mucosa - Nasopharyngeal Coronavirus COVID-19 PCR - Final Laboratory Results 01/25/20 21:40: Urine Color Yellow, Urine Clarity Clear, Urine pH 5.0, Ur Specific [place] 1.020, Urine Protein Negative, Urine Glucose (UA) Normal, Urine Ketones 5 H, Urine Occult Blood Negative, Urine Nitrite Negative, Urine Bilirubin Negative, Urine Urobilinogen Normal, Ur Leukocyte Esterase 100 H, Urine RBC 0-5 SEEN, Urine WBC 0-5 SEEN, Ur Squamous Epith Cells 5-10 SEEN, Urine Bacteria 1+, Urine Mucus 1+ 01/25/20 22:00: WBC 13.1 H, RBC 4.20, Hgb 12.6, Hct 38.4, MCV 91.4, MCH 30.0, MCHC 32.8, RDW Std Deviation 39.8, RDW Coeff of Chava 12.0, Plt Count 278, MPV 10.5, Immature Gran % (Auto) 0.300, Neut % (Auto) 75.4 H, Lymph % (Auto) 15.0 L, [place] % (Auto) 8.2, Eos % (Auto) 0.7, Baso % (Auto) 0.4, Absolute Neuts (auto) 9.9 H, Absolute Lymphs (auto) 1.96, Nucleated RBC % 0 01/25/20 22:00: Sodium 138, Potassium 3.9, Chloride 103, Carbon Dioxide 28.0, Anion Gap 7, BUN 17, Creatinine 1.18 H, Estim Creat Clear Calc 54.85, Est GFR (MDRD) Af Amer 62, Est GFR (MDRD) Non-Af 51 L, BUN/Creatinine Ratio 14.4, Glucose 92, Calcium 9.0, Total Bilirubin 0.40, AST 17, ALT 23, Alkaline Phosphatase 51, Total Protein 7.8, Albumin 3.6, Globulin 4.2, Albumin/Globulin Ratio 0.9, Lipase 128 01/25/20 23:14: COVID-19 ([facility]) Cancelled 01/26/20 05:46: WBC 9.7, RBC 3.82 L, Hgb 11.6 L, Hct 35.9 L, MCV 94.0, MCH 30.4, MCHC 32.3, RDW Std Deviation 40.0, RDW Coeff of Chava 11.8, Plt Count 249, MPV 10.4, Immature Gran % (Auto) 0.300, Neut % (Auto) 72.2 H, Lymph % (Auto) 16.0 L, [place] % (Auto) 10.5 H, Eos % (Auto) 0.6, Baso % (Auto) 0.4, Absolute Neuts (auto) 7.0, Absolute Lymphs (auto) 1.55, Nucleated RBC % 0 01/26/20 05:46: Sodium 138, Potassium 3.9, Chloride 106, Carbon Dioxide 26.0, Anion Gap 6, BUN 17, Creatinine 1.16 H, Estim Creat Clear Calc 53.71, Est GFR (MDRD) Af Amer 63, Est GFR (MDRD) Non-Af 52 L, BUN/Creatinine Ratio 14.7, Glucose 91, Calcium 8.3 L Current Medications Sodium Chloride () 1,000 mls @ 125 mls/hr IV .Q8H HOLLY Last Infusion: 01/26/20 06:10 Dose: 0 mls/hr Documented by: Ciprofloxacin (Cipro) 400 mg in 200 mls @ 200 mls/hr IV Q12 HOLLY Metronidazole (Flagyl) 500 mg in 100 mls @ 100 mls/hr IV Q8 HOLLY Last Admin: 01/26/20 06:10 Dose: 100 mls/hr Documented by: Sodium Chloride () 250 mls @ 15 mls/hr IV .[id number] PRN PRN Reason: Saline Flush Sodium Chloride () 250 mls @ 15 mls/hr IV .[id number] PRN PRN Reason: Additional IVPB Infusion Losartan Potassium (Cozaar) 25 mg PO DAILY [facility] Morphine Sulfate () 2 - 4 mg IV Q2H PRN PRN PRN Reason: Pain Score 1-10/10 Morphine Sulfate () 2 - 4 mg IV Q2H PRN PRN PRN Reason: Pain Score 1-10/10 Last Admin: 01/26/20 04:04 Dose: 4 mg Documented by: Ondansetron HCl (Zofran) 4 mg IV Q8H PRN PRN PRN Reason: NAUSEA Sodium Chloride () 10 - 40 ml IV UD PRN PRN Reason: SALINE FLUSH Last Admin: 01/26/20 04:05 Dose: 10 ml Documented by: Assessment/Plan All Active Problems (Last Reviewed 12/05/18 @ 13:[address] Rory Abbott MD) Acute appendicitis (Acute) 49-year-old female with acute appendicitis 1. Discussed procedure laparoscopic appendectomy, possible open, possible bowel resection along with the risk but not limited to bleeding, infection/abscess, injury to another organ (small bowel, colon, etc.), adhesion, hernia at incision sites, and anesthesia. Patient and her had no further questions this time. Kasey Matthews M.D. Pager: [phone] [facility] [address], [address] [place] [address] Office: [phone] Essential Procedure Criteria Procedure Essential: Yes Criteria Note: On 11/25/2019 the [facility] ([facility]) Public Order signed by [facility] Director Eugenia Alberto M.D., regarding the Management of Non-Essential Surgeries and Procedures for the purpose of preserving Personal Protective Equipment (PPE) and critical hospital capacity and resources within [place] went into effect as of 11/26/2019 at 5:00PM. According to the [facility] Public Order: This action will remain in full force and effect until the State of Emergency declared by the Governor no longer exists or the Director of the [facility] rescinds or modifies this Order.. This [facility] order stated all non-essential or elective surgeries and procedures that utilize PPE should be delayed unless there is undue risk to the current or future health of a patient. After reviewing the aforementioned [facility] Public Order and the patients clinical case, I have determined that the scheduled procedure meets the criteria to go forward. Risk to Patient if Procedure Delayed: Risk of rapidly worsening to severe symptoms if delayed
--- NOTE | 2020-01-26 06:42 | SUR.PREOP ---
pt states she has not had menses since 2011. no preop preg test needed per protocol.
--- NOTE | 2020-01-26 07:00 | APP_PTH ---
PATIENT: NOBLE SON LOC: MS3 U#:[id number] AGE/SX: 49/F ROOM: MS311 RE01/26/[address]: Dr. Kasey Matthews MD : [id number] BED: 1 DIS: 01/26/2020 SPEC #: [id number] RECD: 01/26/20 08:40 STATUS: SOUClemencia REQ #: [id number] ANTOINETTE: 01/26/20 07:[address]: Kasey Matthews DEPT: SURGICAL PATHOLOGY RECD BY: Amandeep Darnell ENTERED: 01/26/20 11:37 SP TYPE: APPENDIX OTHR DR: Dr. Marcos Carr, DO Tissues: Appendix, NOS Procedures: Surgery Specimen Level III HEADER OPERATION: Laparoscopic appendectomy PRE-OP DIAGNOSIS: Acute appendicitis TISSUE SUBMITTED: Appendix MICROSCOPIC DIAGNOSIS Appendix, appendectomy: Acute appendicitis. Acute serositis. AM:jennifer 01/27/20 MICROSCOPIC DESCRIPTION Slides are reviewed. GROSS DESCRIPTION Received is one container labeled with the patient's name and designated appendix. The specimen consists of a J-shaped appendix measuring 16 cm in length and up to 1 cm in diameter. The attached periappendiceal adipose tissue measures up to 3 cm in width. The serosal surface is focally covered with sharpe, purulent exudate. No obvious perforation is identified. The lumen is filled with hemorrhagic purulent fluid. No fecalith is identified. Stone Sandblaster sections are submitted in one cassette. / SJ:jennifer 01/26/20 TC:2 CPT: 39089
[2020-01-26] MEDS: Lactated Ringers 1,000 ML 100 ML IV (07:15)
[2020-01-26] MEDS: Bupiv/Epi 0.5% Mpf 30 ML Vial (08:22)
--- NOTE | 2020-01-26 08:28 | PCM.OPRPT ---
Report of Operation Date of Procedure: 01/26/20 Pre-Operative Diagnosis: Acute appendicitis Post-Operative Diagnosis: Same Surgery/Procedure Performed:: Laparoscopic appendectomy Type of Anesthesia:: General/Supplemental Anesthesiologist: Omar Reynolds Special Medications: Patient on Cipro and Flagyl IV for acute appendicitis on the floor Specimen's removed: Appendix Estimated Blood Loss (mL): 10 cc Fluids Replaced: 900 cc Description of Procedure: Indications: 49-year-old female presented to the ER with new right lower quadrant pain midday yesterday. On workup she was found to have acute appendicitis on CT and a leukocytosis of 13. Patient was started on antibiotics in the ER for acute appendicitis-Cipro and Flagyl IV Description of the procedure: The patient was placed on operating table in supine position. General anesthesia was induced. A timeout was completed verifying correct patient, procedure, position and special equipment prior to beginning procedure. Abdomen was prepped and draped in usual sterile fashion. Incision was made in the natural skin line above the umbilicus with a 15 blade scalpel. The fascia was elevated and incised. Entry into the peritoneum was confirmed visually and no bowel was noted in the vicinity of the incision. The Plunkett trocar was placed under direct vision. Abdomen insufflated with a pressure of 12-15 mmHg. Patient tolerated insertion well. The scope was inserted and the abdomen inspected. No injuries from initial trocar placement were noted. Minimal amount of fluid was seen in the right lower quadrant. An direct visualization 2 -5 mm trocars were placed one above the symphysis pubis and below the hairline and one in the left lower quadrant lateral to the rectus muscle. Care is taken to avoid injury to the bladder and inferior epigastric vessels. The table was placed in Trendelenburg position with the right side elevated. The appendix was grasped with atraumatic grasper and elevated. It was noted to be inflamed. A window was developed in the mesoappendix at the point between the base of the appendix and the cecum. An endoscopic 45 mm linear cutting stapler blue load was then used to divide and staple the base of the appendix. Enseal was used to divide the mesoappendix. The appendix was withdrawn into the Plunkett trocar after being placed endoscopically retrieval bag. Appendix was sent to pathology. The appendiceal stump was then irrigated and hemostasis was assured. Fluid was suctioned no other pathology was identified. Secondary trochars were removed under direct visualization. No bleeding was noted trocar sites. The laparoscope withdrawn and the umbilical trocar removed. The abdomen was allowed to collapse. Local anesthesia of 30 mL of 0.5% Marcaine with epi was used at the incision sites. The umbilical trocar site was closed with the [id number] 0 Vicryl suture. The skin was closed up to clear sutures of 4-0 Monocryl and Steri-Strips. The patient was extubated. The patient tolerated the procedure well and was taken to the postanesthesia care unit in satisfactory condition. - Complications None
--- NOTE | 2020-01-26 09:40 | DCINST_ITS ---
Discharge Diet: Light diet - advance as tolerated Discharge Activity: May not drive while taking narcotic pain medications. May shower in (days): 1 Lifting Restrictions: No lifting greater than 20 lbs x 2 wks, strenuous exercise for 5 weeks Call your doctor if your incision/area has: Continuous Slow Oozing, Sudden Increased Bleeding, Increased Pain/ Swelling, Increased Redness, Foul Smelling Discharge, Swelling at the incision site Call your doctor if you observe: Fever of 101 or Higher Remove Dressing in (days):: 1 - Okay to remove op sites tomorrow, Steri-Strips will stay on for 7 to 10 days until they fall off if they not follow-up in 10 days okay to remove Additional Instructions: Okay to restart Xarelto Sunday Okay to take ibuprofen 400-600 mg PO q6hr PRN along with the Percocet. Avoid Tylenol since there is already Tylenol in the Percocet. Take all pain meds with food. Percocet can cause constipation recommend taking daily stool softener (i.e. Colace/docusate) while taking the pain meds. Recommend starting some MiraLAX in 1 to 2 days if no bowel movement. If still no bowel movement Day recommend taking magnesium citrate half the bottle and waiting 4-6 hours if still no results take the other half the bottle. Medications to take at Discharge Doxycycline 100 mg PO QHS 08/15/18 Losartan Potassium [Cozaar] 25 mg PO QHS 08/15/18 Spironolactone [Aldactone] 100 mg PO BID 08/15/18 traMADol [Ultram (G)] 50 mg PO BID PRN 08/15/18 Rivaroxaban [Xarelto] 20 mg PO QHS 12/25/18 Oxycodone HCl/Acetaminophen [Percocet 5/325] 1 - 2 tab PO Q6H PRN PRN 4 Days #20 tab 01/26/20 Allergies/Adverse Reactions: Allergies Penicillins Allergy (Verified 01/25/20 21:22) Rash erythromycin base Adverse Reaction (Verified 01/25/20 21:22) Diarrhea The following prescriptions were given: Oxycodone HCl/Acetaminophen [Percocet 5/325] 1 - 2 tab PO Q6H PRN PRN 4 Days #20 tab PRN Reason: Pain Transmission Status: Received by [id number] Primary Care Physician: Marcos Carr DO [Primary Care Provider] - Test Results: Test results from this visit will be discussed in further detail at your follow- up appointment, if applicable. Please Follow Up With: Kasey Matthews MD - After 5 PM and on the weekends call [phone] with any concerns When: Call the office [phone] for f/u appt in 2 weeks phone/virtual Proposed Discharge Date: 01/26/20
[2020-01-26] MEDS: 0.9% Normal Saline 1,000 ML 125 ML IV (09:50)
[2020-01-26] MEDS: Acetaminophen 325 MG Tablet 650 MG PO (11:35)
== END 2020-01-26 16:37 | disposition home or self-care (01) ==
LOC: ED 23:09 → MS3 01-26 08:09
PROVIDERS: Admitting Provider Surgery; Emergency Provider Emergency Medicine; PCP Student in an Organized Health Care Education/Training Program; Referring Provider Surgery; Visit Provider Surgery
PROC: 0DTJ4ZZ Resection of Appendix, Percutaneous Endoscopic Approach (ICD-10-PCS; CPT 44970; principal; 2020-01-26 07:00)
DX: K35.80 Unspecified acute appendicitis (principal); Z86.711 Personal history of pulmonary embolism; I10 Essential (primary) hypertension; Z79.899 Other long term (current) drug therapy; Z79.01 Long term (current) use of anticoagulants; M17.11 Unilateral primary osteoarthritis, right knee; D66 Hereditary factor VIII deficiency; Z20.828 Contact with and (suspected) exposure to other viral communicable diseases
CPT/HCPCS: 44970; 36415; 74176; 80048; 80053; 81001; 83690; 85025; 87635; 88304; 93005; 96361; 96365; 96366; 96367; 96374; 96375; 96376; 99218; 99251; 99283; G2023; J7030; J7120; A4216; C1760; G0378; G0463; J0744; J2405; U0002

== ENCOUNTER 2020-03-17 00:17 | Emergency (ER) | payer OTHER, SELFPAY ==
[2020-01-26 06:00] VITALS: BMI 40.1
[2020-03-17 00:18] VITALS: BP 123/70; PULSE 80; RESP 16; TEMP 37.1; O2SAT 99
[2020-03-17 00:19] VITALS: BP 123/70; PULSE 84; RESP 16; TEMP 37.1; O2SAT 99; BMI 43.3
--- NOTE | 2020-03-17 00:36 | ED.DCSUM_ITS ---
History of Present Illness Chief Complaint: Lower Extremity Injury Informant: Patient Onset: Yesterday Current Severity: Moderate Maximum Severity: Moderate Narrative: Patient presents secondary to increased edema in her right lower extremity. She had a right knee replacement yesterday with Dr. Jo at [facility] orth[facility] in [place]. Patient states that this afternoon she noted increased swelling in her right lower extremity. Her primary concern was that she had a history of an unprovoked PE. She was off her Xarelto 5 days prior to her surgery. She restarted her Xarelto last evening and did take a dose tonight. She denies chest pain or shortness of breath. - Past Medical History (1) Status post right knee replacement Status: Chronic (2) Hypertension Status: Chronic (3) Pulmonary embolus Status: Chronic Past Medical History - Allergies and Home Meds Allergies/Adverse Reactions: Allergies Penicillins Allergy (Verified 01/25/20 21:22) Rash erythromycin base Adverse Reaction (Verified 01/25/20 21:22) Diarrhea Primary Care Physician: Marcos Carr DO [Primary Care Provider] - Doctors: Dr. Jo, orthopedics at [facility] Prior records reviewed: Yes Surgical History: rotator cuff repair, tonsillectomy, - - tubal Lives: Spouse/ Significant Other Smoking Status: Never smoker - Family History Maternal Family History: Family History (Last Reviewed 12/05/18 @ 13:[address] Rory Abbott MD) Father Colon cancer CVA (cerebral vascular accident) Heart disease Uncle Cancer Family History: Reports: No pertinent history Review of Systems General: Denies: Chills, Fever Eyes: Denies: Visual changes - bilaterally ENT: Denies: Bilateral ear pain Cardiovascular: Denies: Chest pain Respiratory: Denies: Dyspnea, Cough Gastrointestinal: Denies: Abdominal pain, Nausea, Vomiting Genitourinary: Denies: Dysuria Musculoskeletal: Reports: Swelling, Extremity Pain Hematologic: Denies: Easy bruising, Easy bleeding Allergy: Denies: Uticaria Physical Exam Vital Signs/Narrative: Vital Signs Temp Pulse Resp BP Pulse Ox 03/17/20 00:19 98.8 F 84 16 123/70 H 99 03/17/20 00:18 98.8 F 80 16 123/70 H 99 Inital Vital Signs reviewed: Yes General: Well nourished, Well developed Head: Normocephalic ENT: Moist mucous membranes Neck: Supple Cardiovascular: Regular rate, Regular rhythm Respiratory: No distress, CTA bilaterally Abdomen: Soft, Nontender Extremities: - - Vertical knee incision over the anterior knee with dressing in place. Moderate ecchymosis noted. Compression socks are in place. Right knee circumference is 20-1/2 inches and right calf circumference is 18 inches. Left knee circumference is 18 inches and left calf circumference is 16-1/2 inches. Strong distal pulses are noted. Skin: - - Postop wound noted. No sign of acute infection. Ecchymosis noted around the surgical wound. Neurological: Alert, Oriented x3 Psychological: Normal affect Diagnostic/Tx/Re-eval - Medical Decision Making Patient presents at 12:30 AM and I am unable to get an ultrasound of her leg at this time. It would be unlikely to have her form a clot so quickly. Regardless she is back on her Xarelto and that would be the treatment of choice anyway. I attempted to page the orthopedic doctor on-call for [facility]. I have not received a return call back. Family states they had called prior to coming into did not receive a return call after an hour and a half. As discussed with the patient I do not feel that an ultrasound would change her management at this time. She is back on her anticoagulants. She is encouraged to return for chest pain or shortness of breath. We discussed appropriate knee elevation and icing. Patient will call the doctor's office tomorrow during business hours and will return for any worsening symptoms or concerns. Addendum: After the patient was discharged I did receive a return call from Dr. Prasad with [facility] orth[facility]. We reviewed the patient's presentation and case. She agreed with the advice given. She will notify the patient's primary orthopedic doctor in the morning. ED Disposition - Plan for ED Patient: Disposition: Home or Assisted Living Diagnosis: Encounter for postoperative wound check Instructions: ED Wound Check Post Op Pain Referrals: Marcos Carr DO [Primary Care Provider] - Additional Instructions: Call your orthopedist tomorrow as discussed.
[2020-03-17 01:32] VITALS: BP 104/71; PULSE 90; RESP 17; O2SAT 94
== END 2020-03-17 01:33 | disposition home or self-care (01) ==
PROVIDERS: Emergency Provider Emergency Medicine; PCP Student in an Organized Health Care Education/Training Program
DX: Z48.00 Encounter for change or removal of nonsurgical wound dressing (principal); I10 Essential (primary) hypertension; Z79.01 Long term (current) use of anticoagulants; Z82.3 Family history of stroke; Z82.49 Family history of ischemic heart disease and other diseases of the circulatory system; Z86.711 Personal history of pulmonary embolism; Z88.0 Allergy status to penicillin; Z88.1 Allergy status to other antibiotic agents; Z96.651 Presence of right artificial knee joint
CPT/HCPCS: 99282

== ENCOUNTER → 2020-04-28 14:42 | Outpatient (CLI) | payer OTHER, SELFPAY ==
--- NOTE | 2020-04-28 15:00 | RAD_ITS ---
STUDY: X-RAY - LUMBAR SPINE REASON FOR EXAM: Female, 49 years old. Lower back pain for a few weeks now. No known injury. TECHNIQUE: 3 view(s) of the lumbar spine were obtained. COMPARISON: None FINDINGS: Normal lumbar lordosis. There is multilevel endplate spondylosis of the lumbar vertebrae. There is multi-level degenerative disc disease with multi-level disc space narrowing. The soft tissue structures are unremarkable. RAD/Lumbar Spine 2 or 3 Views IMPRESSION: Degenerative changes of the spine. Electronically Signed: Rayshawn Leone MD at 15:58 EDT Tel , Service support ,
== END ==
PROVIDERS: PCP Student in an Organized Health Care Education/Training Program; Referring Provider Anesthesiology Pain Medicine; Visit Provider Anesthesiology Pain Medicine
DX: M54.9 Dorsalgia, unspecified (principal)
CPT/HCPCS: 72100

== ENCOUNTER 2021-01-22 04:57 | Emergency (ER) | payer OTHER, SELFPAY ==
[2021-01-22 04:58] VITALS: BP 135/73; PULSE 92; RESP 16; TEMP 36.6; O2SAT 99; BMI 40.4
[2021-01-22 05:03] VITALS: BP 115/71; PULSE 90; RESP 17; TEMP 36.6; O2SAT 100
--- NOTE | 2021-01-22 05:28 | EDS_ITS ---
HPI History of Present Illness Chief Complaint: General Illness Informant: patient Onset/Context/Timing Onset: Days (3) Context: Gradual Onset Timing: Continuous Quality: vomiting and diarrhea Current Severity: Severe Maximum Severity: Severe Worsened by: eating Relieved by: nothing Associated Symptoms Associated Symptoms: chills, malaise, myalgias Narrative Narrative: Vomiting and diarrhea that has been getting more aggressive over the last couple days. 2 other family members had similar illness recently, one of them had chills and body aches and no other symptoms and then it was gone. The other 1 had that as well as the vomiting and diarrhea but after a day, she was better. [facility] Medical History Back pain Hidradenitis HTN (hypertension) Osteoarthritis Pulmonary embolism Home Medications losartan 25 mg PO QHS 08/15/18 [History Last Taken 12/26/18 08:00] spironolactone 100 mg PO BID 08/15/18 [History Last Taken 04/05/19] tramadol 50 mg PO BID PRN 08/15/18 [History Last Taken Unknown] Xarelto 20 mg PO QHS 12/25/18 [History Last Taken 01/24/20 20:00] diphenoxylate-atropine [Lomotil] 1 tab PO DAILY PRN #10 tab 01/22/21 [Rx Last Taken Unknown] fluoxetine 10 mg DAILY 01/22/21 [History Last Taken Unknown] magnesium oxide 400 mg PO DAILY 01/22/21 [History Last Taken Unknown] ondansetron 8 mg PO 4X/DAY PRN PRN #30 tab 01/22/21 [Rx Last Taken Unknown] Allergy/AdvReac Type Severity Reaction Status Date / Time Penicillins Allergy Rash Verified 01/25/20 21:22 erythromycin base AdvReac Diarrhea Verified 01/25/20 21:22 Family History Father Colon cancer CVA (cerebral vascular accident) Heart disease Uncle Cancer stomach Surgical History History of colonoscopy (~2008) History of colonoscopy (~2013) History of dilation and curettage History of esophagogastroduodenoscopy (EGD) (~2001) Hx of appendectomy (~2019) Total knee replacement status (~2019) Social History Smoking Status: Never smoker ROS ROS ED Constitutional Constitutional ED: Reports chills; Denies fever(s) Eyes Eyes: Denies change in vision or diplopia ENT ENT ED: Denies rhinorrhea or sore throat Cardiovascular Cardiovascular: Denies chest pain or palpitations Respiratory/Chest Respiratory/Chest: Denies cough or dyspnea Gastrointestinal Gastrointestinal: Reports diarrhea, nausea and vomiting; Denies abdominal pain Genitourinary Genitourinary ED: Denies dysuria or hematuria Musculoskeletal Musculoskeletal: Reports myalgias; Denies back pain or neck pain Integumentary Denies abscess or rash Neurologic Neurologic: Denies headache(s), paresthesias or weakness Psychiatric Psychiatric: Denies anxiety or suicidal thoughts EXAM Physical Exam Const Vital Signs: 01/22/21 04:58 01/22/21 05:03 01/22/21 05:04 Temperature 97.8 F 97.8 F Temperature Source Oral Oral Pulse Rate 92 90 Respiratory Rate 16 17 Respiratory Effort Normal Respiratory Pattern Normal Blood Pressure 135/73 H 115/71 Blood Pressure Mean 93 85 Pulse Ox 99 100 Oxygen Delivery Method Room Air Room Air 01/22/21 06:04 01/22/21 07:11 Temperature 98.3 F 99.3 F H Temperature Source Oral Oral Pulse Rate 87 74 Respiratory Rate 16 16 Respiratory Effort Respiratory Pattern Blood Pressure 123/84 H 118/76 Blood Pressure Mean 97 90 Pulse Ox 97 98 Oxygen Delivery Method Room Air Room Air Positive well nourished and well developed General Appearance ED: well developed and NAD HEENT Reports moist mucous membranes normocephalic and atraumatic Eyes PERRL and EOMs intact bilaterally Neck full ROM and supple Resp normal respiratory effort and clear to auscultation bilaterally Cardio regular rate, regular rhythm and no murmurs GI non-tender and non-distended Auscultation: hyperactive bowel sounds Palpation: soft Back/Spine no CVA tenderness General Back: other FROM Extremity normal to inspection General Extremety ED: Negative for edema, pulses abnormal or tenderness General Extremity: Negative for edema or pulses abnormal Neuro oriented x3, CN's II-XII intact bilaterally and no sensory deficits noted Sensorium / Orientation: awake and alert Motor Exam: strength 5/5 throughout Skin no rashes or lesions noted and no wounds MDM MDM MDM Narrative Medical decision making narrative: Metabolic work-up obtained, slight elevation of BUN/creatinine, probably indicative of her need for fluids. She was given a liter of IV normal saline in addition to Zofran, she felt much better afterwards. She was able to tolerate fluids, but she was unable to have a bout of diarrhea in the ER to send for testing. Given the lack of a leukocytosis and the history of several family members with brief illnesses, my suspicion is that this is viral in etiology. I do not think empiric antibiotics are indicated, but I think it is reasonable to test her for bacterial causes since this patient did have an episode of diarrhea remotely in the past while she was traveling that was successfully treated with antibiotics. Will discharge home with supportive care, fluids, Zofran and Lomotil as needed and outpatient follow-up or return if worse. Lab Data Attestation: I reviewed the patient's lab results. Labs: Laboratory Results - last 24 hr 01/22/21 01/22/21 05:25 05:25 WBC 9.1 RBC 4.61 Hgb 13.5 Hct 40.7 MCV 88.3 MCH 29.3 MCHC 33.2 RDW Std Deviation 40.0 RDW Coeff of Chava 12.3 Plt Count 268 MPV 10.2 Immature Gran % (Auto) 0.200 Neut % (Auto) 75.7 H Lymph % (Auto) 10.2 L [place] % (Auto) 13.5 H Eos % (Auto) 0.1 Baso % (Auto) 0.3 Absolute Neuts (auto) 6.9 Absolute Lymphs (auto) 0.92 Nucleated RBC % 0 Sodium 132 L Potassium 4.1 Chloride 97 L Carbon Dioxide 25.0 Anion Gap 10 BUN 20 H Creatinine 1.87 H Estim Creat Clear Calc 32.94 Est GFR (MDRD) Af Amer 36 L Est GFR (MDRD) Non-Af 30 L BUN/Creatinine Ratio 10.7 Glucose 108 H Calcium 9.4 Total Bilirubin 0.40 AST 27 ALT 31 Alkaline Phosphatase 64 Total Protein 8.3 H Albumin 3.4 Globulin 4.9 H Albumin/Globulin Ratio 0.7 L Discharge Plan Triage Chief Complaint: General Illness ED Provider: Kishan De Anda Dx/Rx/DC Orders Clinical Impression: Gastroenteritis, Mild dehydration Instructions: ED Gastroenteritis, Noninfectious Prescriptions: New diphenoxylate-atropine [Lomotil] 2.5-0.025 mg tablet 1 tab PO DAILY PRN (Reason: diarrhea) Qty: 10 RF: 0 Continued tramadol 50 MG tablet 50 mg PO BID PRN (Reason: Pain Score 1-10/10) RF: 0 losartan 25 MG tablet 25 mg PO QHS RF: 0 spironolactone 50 MG tablet 100 mg PO BID RF: 0 Xarelto 15 MG tablet 20 mg PO QHS RF: 0 magnesium oxide 400 mg magnesium Capsule 400 mg PO DAILY RF: 0 fluoxetine 10 mg capsule 10 mg DAILY RF: 0 Changed ondansetron 4 mg tablet,disintegrating 8 mg PO 4X/DAY PRN PRN (Reason: Nausea) Qty: 30 RF: 0 Discontinued dicyclomine 10 mg capsule 10 mg PO 4X/DAY RF: 0 Primary Care Provider: Marcos Carr Referrals: Marcos Carr DO [Primary Care Provider] - 3-5 Days if not improving Disposition Disposition: Home, self care
[2021-01-22 05:36] LABS: Absolute Lymphocyte Count 0.92 X10^3/uL (0.83-4.51); Absolute Neutrophil Count 6.9 X10^3/uL (2.0-7.7); Basophil# 0.03 X10^3/uL; Basophil% 0.3 % (0-1); Eosinophil# 0.01 X10^3/uL; Eosinophils% 0.1 % (0-5); Hematocrit 40.7 % (37-47); Hemoglobin 13.5 g/dL (12.0-15.0); Lymphocyte # 0.92 X10^3/ul (0.83-4.51); Lymphocyte % 10.2 % (19-41); Mean Corp Hgb Conc 33.2 g/dL (32-36); Mean Corpuscular Hgb 29.3 pg (27.0-32.0); Mean Corpuscular Volume 88.3 fL (81-99); Mean Platelet Vol. 10.2 fl (6.2-12.0); Monocyte# 1.22 X10^3/uL; Monocyte% 13.5 % (0-10); NRBC Flagged by Analyzer 0 % (0-5); Neutrophil # 6.86 X10^3/uL (2.7-7.7); Neutrophil % 75.7 % (47-70); Platelet Count 268 K/mm3 (150-450); RBC Distribution Width CV 12.3 % (11.6-14.6); Red Blood Count 4.61 M/mm3 (4.2-5.4); White Blood Count 9.1 K/mm3 (4.4-11.0)
[2021-01-22 05:49] LABS: ALB/GLOB Ratio 0.7 RATIO (0.9-2.4); AST(SGOT) 27 U/L (15-37); Alanine Aminotransfer ALT/SGPT 31 U/L (13-56); Albumin, Serum 3.4 g/dL (3.2-5.0); Alkaline Phosphatase 64 U/L (45-117); Anion Gap 10 (5-15); BUN 20 mg/dL (7-18); BUN/Creat Ratio 10.7 RATIO (10-20); Calcium,Total 9.4 mg/dL (8.5-10.1); Chloride 97 mmol/L (98-107); Creatinine, Serum 1.87 mg/dL (0.55-1.02); EST Glomerular Filtration Rate 30 mL/min (>60); Est Glom Filt Rate - Afr Amer 36 mL/min (>60); Estimated Creatinine Clearance 32.94 ml/min; Globulin 4.9 g/dL (2.2-4.2); Glucose 108 mg/dL (74-106); Potassium 4.1 mmol/L (3.5-5.1); Protein, Total 8.3 g/dL (6.4-8.2); Sodium Level 132 mmol/L (136-145)
[2021-01-22] MEDS: Ondansetron 4 MG/2 ML Vial IV (05:58)
[2021-01-22] MEDS: 0.9% Normal Saline 1,000 ML 1000 ML IV (05:59)
[2021-01-22 06:04] VITALS: BP 123/84; PULSE 87; RESP 16; TEMP 36.8; O2SAT 97
[2021-01-22 07:11] VITALS: BP 118/76; PULSE 74; PULSE 86; RESP 16; TEMP 37.4; O2SAT 98
--- NOTE | 2021-01-22 07:54 | ED.RN ---
Pt up to BR to attempt a stool sample. Several pea sized dots of stool mixed with urine in speci-hat; not able to send to lab. MD De Anda notified.
[2021-01-22 09:01] VITALS: BP 107/58; PULSE 79; RESP 16
[2021-01-22] MEDS: Diphenoxylate/Atrop 1 Tablet PO (09:06)
== END 2021-01-22 09:10 | disposition home or self-care (01) ==
PROVIDERS: Emergency Provider Emergency Medicine; PCP Student in an Organized Health Care Education/Training Program
DX: E86.0 Dehydration (principal); K52.9 Noninfective gastroenteritis and colitis, unspecified; I10 Essential (primary) hypertension; Z79.01 Long term (current) use of anticoagulants; Z79.899 Other long term (current) drug therapy; M19.90 Unspecified osteoarthritis, unspecified site; Z86.711 Personal history of pulmonary embolism
CPT/HCPCS: 80053; 85025; 96361; 96374; 99284; J7030; A4216; J2405